=== PATIENT | female | born 1950 | race Two or more races ===

== ENCOUNTER 2016-09-04 15:26 | Emergency (ER) | payer MEDICARE, BC ==
[2016-09-04] MEDS ORDERED: PREDNISONE 10 MG TABLET PO ONE (16:15)
[2016-09-04] MEDS ORDERED: IPRATRPIUM/ALBUTEROL 0.5/2.5MG 3 ML NEBU. NEB ONE (16:15)
--- NOTE | 2016-09-04 16:15 | PHYS DOC ---
Past Medical History Past Medical History: Asthma Past Surgical History: Other Additional Past Surgical Histo: bladder sling Alcohol Use: None Drug Use: None Adult General Chief Complaint Chief Complaint: ASTHMA HPI HPI Patient is a 66 year old female who presents with asthma exacerbation. Patient reports over the course of this week she has become more wheezy, has been breathing heavier, having cough, having chills. She has used albuterol inhaler nebulizer at home with insufficient relief. She denies any chest pain. No other acute complaints. Review of Systems Review of Systems Constitutional: Chills Eyes: Denies change in visual acuity or eye pain HENT: Denies nasal congestion or sore throat Respiratory: Cough, wheezing Cardiovascular: Denies chest pain GI: Denies abdominal pain, nausea, vomiting, bloody stools or diarrhea : Denies dysuria or hematuria Musculoskeletal: Denies back pain or joint pain Integument: Denies rash or skin lesions Neurologic: Denies headache, focal weakness or sensory changes Current Medications Current Medications Current Medications Medications (Trade) Dose Ordered Sig/Tiburcio Start Time Stop Time Status Last Admin Dose Admin Albuterol/ Ipratropium (Duoneb) 6 ml 1X ONCE 09/04/16 16:15 09/04/16 16:17 DC 09/04/16 16:44 6 ML Prednisone (Prednisone) 60 mg 1X ONCE 09/04/16 16:15 09/04/16 16:17 DC 09/04/16 16:25 60 MG Allergies Allergies Allergies Uncoded Allergies Type Severity Reaction Last Updated Verified OTHER Allergy Unknown 10/01/13 Physical Exam Physical Exam Constitutional: Well developed, well nourished, no acute distress, non-toxic appearance HENT: Normocephalic, atraumatic, bilateral external ears normal Eyes: EOMI, conjunctiva normal, no discharge Neck: Normal range of motion, no stridor Cardiovascular: Tachycardic, regular rhythm, no murmur Lungs & Thorax: Diffuse expiratory wheezing Abdomen: Bowel sounds normal, soft, non-distended, no TTP Skin: Warm, dry, no erythema, no rash Extremities: No obvious deformity, no edema Neurologic: Alert and oriented X 3, no gross deficits noted Psychologic: Affect normal, judgement normal, mood normal Current Patient Data Vital Signs Vital Signs Date Time Temp Pulse Resp B/P Pulse Ox O2 Delivery O2 Flow Rate FiO2 09/04/16 17:49 100 20 129/65 94 Room Air 09/04/16 15:30 98.5 98.5 EKG EKG [] Radiology/Procedures Radiology/Procedures CXR (my read): IMPRESSION: No acute cardiopulmonary abnormality is detected. Course & Med Decision Making Course & Med Decision Making Pertinent Labs and Imaging studies reviewed. (See chart for details) Patient is 66-year-old female who presents with asthma exacerbation. Will check chest x-ray to rule out acute process. Breathing treatment, steroids ordered for relief of symptoms. Chest x-ray results as above. Discussed results with patient, who reports her breathing is much improved after the breathing treatment. Repeat exam demonstrates only trace respiratory wheezing. Will discharge with steroid burst, prescription for refill inhaler, instructions for follow-up, return precautions. Dragon Disclaimer Dragon Disclaimer This electronic medical record was generated, in whole or in part, using a voice recognition dictation system. Departure Departure Impression: Primary Impression: Asthma exacerbation Disposition: HOME, SELF-CARE Condition: IMPROVED Referrals: NON,STAFF (PCP) Patient Instructions: Asthma Attacks, Prevention, Asthma, Adult Additional Instructions: Thank you for allowing us to provide care today in the Emergency Department. Take the provided medication as directed. Schedule a follow up appointment with your primary care doctor. Return promptly to the Emergency Department if you develop any new or concerning symptoms. Scripts Albuterol Sulfate (Ventolin Hfa Inhaler)18 Gm Hfa.aer.ad2 Puff INH Q6HRS FOR ASTHMA #1 INHALER Prov:ANGE GARCES MD 09/04/16 Prednisone 50 Mg Tablet1 Tab PO DAILY #4 TAB start taking 09/05/16 Prov:ANGE GARCES MD 09/04/16 ANGE GARCES MD Sep 04, 2016 16:15
--- NOTE | 2016-09-04 16:45 | RAD ---
Chest, 2 views, 09/04/2016: History: Cough, shortness of breath The heart size and pulmonary vascularity are normal. No pulmonary infiltrates are seen. There is no evidence of pleural fluid. The lungs appear to be somewhat hyperexpanded. There is a mild thoracolumbar scoliosis. The bones are demineralized. IMPRESSION: No acute cardiopulmonary abnormality is detected.
[2016-09-04] MEDS ORDERED: VENTOLIN HFA18 GM INH (17:34)
[2016-09-04] MEDS ORDERED: PRED50TA PO (17:34)
[2016-09-04 17:49] VITALS: BP 129/65
== END 2016-09-04 17:49 | disposition home or self-care (01) ==
LOC: ER 15:26
DX: J45.901 Unspecified asthma with (acute) exacerbation (principal)
CPT/HCPCS: 71020; 94250; 94640; 94760; 99285; J7512; J7620

== ENCOUNTER 2017-02-27 10:29 | Emergency (ER) | payer BC, MEDICARE ==
[~2017-02-27 10:29] MED LIST: PRED50TA PO; VENTOLIN HFA18 GM INH
[2017-02-27] MEDS ORDERED: cefTRIAXone IM 250 MG VIAL IM ONE (11:00)
[2017-02-27] MEDS ORDERED: ALBUTEROL SULFATE 2.5 MG/3 ML NEBU. NEB ONE (11:00)
[2017-02-27] MEDS ORDERED: DOXY100C2 PO (12:01)
[2017-02-27 12:11] VITALS: BP 163/77
--- NOTE | 2017-02-27 12:37 | PHYS DOC ---
Past Medical History Past Medical History: No Pertinent History, Asthma Past Surgical History: Other Additional Past Surgical Histo: bladder sling Alcohol Use: None Drug Use: None Adult General Chief Complaint Chief Complaint: ALLERGIC REACTION HPI HPI Patient is a 66 year old female who is here for an infection on her face. She was seen twice by her family practice physician over the past week. The first interaction she was placed on mupirocin cream, but her symptom was worsening so she went in yesterday where she states she received a steroid injection. The area is a triangular shape covering her nose and upper lip with some weeping and crusting. She states that she did not use the mupirocin yesterday or today she felt it was not working. She states this originally started 8 days ago. Review of Systems Review of Systems Constitutional: Denies fever or chills [] Eyes: Denies change in visual acuity, redness, or eye pain [] HENT: Denies nasal congestion or sore throat [] Respiratory: Denies cough or shortness of breath [] Cardiovascular: No additional information not addressed in HPI [] GI: Denies abdominal pain, nausea, vomiting, bloody stools or diarrhea [] : Denies dysuria or hematuria [] Musculoskeletal: Denies back pain or joint pain [] Integument: See history of present illness Neurologic: Denies headache, focal weakness or sensory changes [] Endocrine: Denies polyuria or polydipsia [] Current Medications Current Medications Current Medications Medications (Trade) Dose Ordered Sig/Tiburcio Start Time Stop Time Status Last Admin Dose Admin Albuterol Sulfate (Ventolin Neb Soln) 2.5 mg 1X ONCE 02/27/17 11:00 02/27/17 11:01 DC 02/27/17 11:06 2.5 MG Ceftriaxone Sodium (Rocephin Im) 250 mg 1X ONCE 02/27/17 11:00 02/27/17 11:01 DC 02/27/17 11:09 250 MG Allergies Allergies Allergies Uncoded Allergies Type Severity Reaction Last Updated Verified OTHER Allergy Unknown 10/01/13 Physical Exam Physical Exam Constitutional: Well developed, well nourished, no acute distress, non-toxic appearance. [] HENT: Normocephalic, bilateral external ears normal, oropharynx moist, no oral exudates] Eyes: PERRLA, EOMI, conjunctiva normal, no discharge. [] Neck: Normal range of motion, no tenderness, supple, no stridor. [] Cardiovascular:Heart rate regular rhythm, no murmur [] Lungs & Thorax: Patient has bilateral inspiratory wheezing Abdomen: Bowel sounds normal, soft, no tenderness, no masses, no pulsatile masses. [] Skin: Patient has a scalded appearance to her nose and upper lip with some crusting and weeping, no pustules noted Back: No tenderness, no CVA tenderness. [] Extremities: No tenderness, no cyanosis, no clubbing, ROM intact, no edema. [] Neurologic: Alert and oriented X 3, normal motor function, normal sensory function, no focal deficits noted. [] Psychologic: Affect normal, judgement normal, mood normal. [] Current Patient Data Vital Signs Vital Signs Date Time Temp Pulse Resp B/P (MAP) Pulse Ox O2 Delivery O2 Flow Rate FiO2 02/27/17 12:11 80 20 163/77 (105) 93 Room Air 02/27/17 10:30 98.7 98.7 EKG EKG [] Radiology/Procedures Radiology/Procedures [] Impressions: Following a breathing treatment in the emergency department the patient's lung sounds are clear to auscultation bilaterally. She states that she feels like she is breathing much better as well. She was encouraged to continue using her albuterol inhaler at home. Course & Med Decision Making Course & Med Decision Making Pertinent Labs and Imaging studies reviewed. (See chart for details) [] 1. Facial infection 2. Asthma exacerbation A culture was obtained from the facial lesion and has been sent to lab for culture and sensitivity. We will call with culture results. The patient was given a shot of Rocephin in the emergency department and is being sent home on doxycycline. She is to follow-up with her primary care in 1 week for recheck or return to the ED if worsening. Dragon Disclaimer Dragon Disclaimer This electronic medical record was generated, in whole or in part, using a voice recognition dictation system. Departure Departure Impression: Primary Impression: Asthma attack Additional Impression: Facial infection Disposition: 01 HOME, SELF-CARE Condition: STABLE Patient Instructions: Skin Infections, Asthma, Adult, [id number] Scripts Doxycycline Hyclate (DOXYCYCLINE HYCLATE) 100 Mg Capsule 1 CAP PO BID, #14 CAP Prov: NIXON JEROME APRN 02/27/17 Problem Qualifiers NIXON JEROME APRN Feb 27, 2017 12:37
== END 2017-02-27 12:12 | disposition home or self-care (01) ==
LOC: ER 10:29
DX: L08.89 Other specified local infections of the skin and subcutaneous tissue (principal); J45.909 Unspecified asthma, uncomplicated; Z91.09 Other allergy status, other than to drugs and biological substances
CPT/HCPCS: 87071; 87075; 87205; 94250; 94640; 96372; 99284; J0696; J7613

== ENCOUNTER 2017-07-14 13:47 | Emergency (ER) | payer BC, MEDICARE ==
[2017-07-14 14:20] LABS: ADD MAN DIFF? NO
[2017-07-14 14:30] LABS: BASO % 1 % (0-3); EOS # 0.4 x10^3/uL (0.0-0.7); EOS % 6 % (0-3); HEMATOCRIT 39.7 % (36.0-47.0); HEMOGLOBIN 12.8 g/dL (12.0-15.5); LYMPH # 1.8 x10^3/uL (1.0-4.8); LYMPH % 24 % (24-48); MEAN CORPUSCULAR HEMOGLOBIN 29 pg (25-35); MEAN CORPUSCULAR HGB CONC 32 g/dL (31-37); MEAN CORPUSCULAR VOLUME 89 fL (79-100); MONO # 0.7 x10^3/uL (0.0-1.1); MONO % 9 % (0-9); NEUT # 4.5 x10^3uL (1.8-7.7); NEUT % 60 % (31-73); PLATELET COUNT 213 x10^3/uL (140-400); RED BLOOD COUNT 4.48 x10^6/uL (3.50-5.40); RED CELL DISTRIBUTION WIDTH 14.2 % (11.5-14.5); WHITE BLOOD COUNT 7.4 x10^3/uL (4.0-11.0)
[2017-07-14 14:48] LABS: ANION GAP 12 (6-14); BLOOD UREA NITROGEN 11 mg/dL (7-20); BUN/CREATININE RATIO 22 (6-20); CALCIUM 8.5 mg/dL (8.5-10.1); CARBON DIOXIDE 27 mmol/L (21-32); CHLORIDE 104 mmol/L (98-107); CREATININE 0.5 mg/dL (0.6-1.0); GFR 122.3; GLUCOSE 91 mg/dL (70-99); SODIUM 143 mmol/L (136-145)
[2017-07-14 14:53] LABS: ALBUMIN 3.7 g/dL (3.4-5.0); ALBUMIN/GLOBULIN RATIO 0.9 (1.0-1.7); ALK PHOS 98 U/L (46-116); ALT (SGPT) 16 U/L (14-59); AST (SGOT) 19 U/L (15-37); C-REACTIVE PROTEIN 2.4 mg/L (0-3.3); TOTAL BILIRUBIN 0.2 mg/dL (0.2-1.0); TOTAL PROTEIN 7.8 g/dL (6.4-8.2)
[2017-07-14 15:37] LABS: SEDIMENTATION RATE 10 (0-25)
[2017-07-14] MEDS: CLINDAMYCIN 600MG PREMIX 50 ML IV (16:06)
== END 2017-07-14 17:05 | disposition home or self-care (01) ==
LOC: ER 13:47
DX: L03.116 Cellulitis of left lower limb (principal); R21 Rash and other nonspecific skin eruption; J45.909 Unspecified asthma, uncomplicated; Z96.0 Presence of urogenital implants; Z88.5 Allergy status to narcotic agent; Z88.8 Allergy status to other drugs, medicaments and biological substances
CPT/HCPCS: 36415; 80053; 85025; 85651; 86140; 87040; 93971; 96365; 99285-25; J3490

== ENCOUNTER 2017-10-03 05:14 | Emergency (ER) | payer BC, MEDICARE ==
[2017-10-03] MEDS: IPRATRPIUM/ALBUTEROL 0.5/2.5MG 3 ML NEBU. NEB (05:37)
[2017-10-03] MEDS: predniSONE 20 MG TABLET PO (05:46)
== END 2017-10-03 05:50 | disposition home or self-care (01) ==
LOC: ER 05:14
DX: J45.31 Mild persistent asthma with (acute) exacerbation (principal); Z88.5 Allergy status to narcotic agent; Z96.0 Presence of urogenital implants
CPT/HCPCS: 94640; 99283-25; J7512; J7620

== ENCOUNTER → 2017-11-17 | Outpatient (CLI) | payer BC, MEDICARE ==
[2017-11-17] MEDS: REGADENOSON 0.4 MG/5 ML DISP.SYRIN. IV (09:00)
== END | disposition home or self-care (01) ==
LOC: ECHO 07:35
DX: I08.1 Rheumatic disorders of both mitral and tricuspid valves (principal)
CPT/HCPCS: 78452; 93017; 93306; 96374; 96375; 96376; A9500; J2785

== ENCOUNTER 2019-08-27 11:59 | Inpatient (IN) | payer BC, MEDICARE ==
[~2019-08-27] VITALS: Ht 147.3 cm; Wt 55.6 kg
[~2019-08-27 11:59] MED LIST changes: +AZIT250T PO; +CLIN300C8 PO; +DOXY100C2 PO; +IPRA3AMP29 NEB; +PRED-220 PO
[2019-08-27] MEDS ORDERED: ACETAMINOPHEN 500 MG TABLET PO ONE (12:45)
[2019-08-27] MEDS ORDERED: cefTRIAXone IV Push 1 GM VIAL. IVP ONE (12:45)
[2019-08-27] MEDS ORDERED: IV NORMAL SALINE 500ML BAG 500 ML IV ONE ×2 (12:45→13:30)
[2019-08-27] MEDS ORDERED: IV NORMAL SALINE 1000ML BAG 1,000 ML IV ONE (12:45)
[2019-08-27 12:52] LABS: BASO % 0 % (0-3); EOS % 0 % (0-3); HEMATOCRIT 38.9 % (36.0-47.0); LYMPH # 0.6 x10^3/uL (1.0-4.8); LYMPH % 3 % (24-48); MEAN CORPUSCULAR HEMOGLOBIN 29 pg (25-35); MEAN CORPUSCULAR HGB CONC 33 g/dL (31-37); MEAN CORPUSCULAR VOLUME 86 fL (79-100); MONO # 1.1 x10^3/uL (0.0-1.1); MONO % 5 % (0-9); NEUT # 19.5 x10^3/uL (1.8-7.7); NEUT % 92 % (31-73); PLATELET COUNT 269 x10^3/uL (140-400); RED BLOOD COUNT 4.54 x10^6/uL (3.50-5.40); RED CELL DISTRIBUTION WIDTH 14.2 % (11.5-14.5); WHITE BLOOD COUNT 21.3 x10^3/uL (4.0-11.0)
[2019-08-27 12:53] LABS: BILIRUBIN,URINE MODERATE (NEG); CLARITY,URINE CLEAR; COLOR,URINE AMBER; NITRITE,URINE NEGATIVE (NEG); PROTEIN,URINE 30 mg/dL (NEG-TRACE)
[2019-08-27 13:04] LABS: CALCIUM 8.9 mg/dL (8.5-10.1); CREATININE 0.7 mg/dL (0.6-1.0); GFR 82.5; POTASSIUM 3.9 mmol/L (3.5-5.1)
[2019-08-27 13:12] LABS: BACTERIA,URINE FEW /HPF (0-FEW); RBC,URINE RARE /HPF (0-2); SQUAMOUS EPITHELIAL CELL,UR FEW /LPF; WBC,URINE OCC /HPF (0-4)
[2019-08-27 13:15] LABS: ALBUMIN 3.6 g/dL (3.4-5.0); ALBUMIN/GLOBULIN RATIO 0.9 (1.0-1.7); TOTAL BILIRUBIN 0.7 mg/dL (0.2-1.0); TOTAL PROTEIN 7.7 g/dL (6.4-8.2)
--- NOTE | 2019-08-27 13:25 | RAD ---
EXAM: Chest, single view. HISTORY: Fever. COMPARISON: 09/04/2016 FINDINGS: A frontal view of the chest is obtained. There is no infiltrate, pleural effusion or pneumothorax. The heart is normal in size. IMPRESSION: No acute pulmonary finding. Electronically signed by: aNdya Dang MD (08/27/2019 1:23 PM) [id number]
[2019-08-27 13:29] LABS: INFLUENZA A PATIENT NEGATIVE (NEGATIVE); INFLUENZA B PATIENT NEGATIVE (NEGATIVE)
[2019-08-27 13:59] LABS: % BANDS 7 % (0-9); % LYMPHS 6 % (24-48); % MONOS 2 % (0-10); % SEGS 85 % (35-66)
[2019-08-27 14:01] LABS: PLT ESTIMATE ADEQUATE (ADEQUATE)
[2019-08-27 14:02] LABS: TOXIC GRANULATION SLIGHT
--- NOTE | 2019-08-27 15:13 | PDOC1 ---
History and Physical Date of Admission Date of Admission DATE: 08/27/19 TIME: 15:08 Identification/Chief Complaint Chief Complaint Fever Source Source: Patient History of Present Illness History of Present Illness Ms Massey is a 69yo F w/ PMHx asthma who presents from home with chills, fever, cough and myalgias for the past 48 hours. Notably with Fever 102.6F, tachycardic into the 130s, hypoxic to 86% on room air. No diarrhea, does have nausea and vomiting. CXR was relatively clear. Given rocephin x1 in ED. WBC 21K, otherwise labs WNL. EKG shows sinus tach rate 121, may be some subtle rate related changes laterally particularly in V6. Past Medical History Pulmonary: Asthma Past Surgical History Past Surgical History: Other (Bladder sling) Family History Family History reviewed Family History: Family History Unknown Social History Smoke: No ALCOHOL: none Drugs: None Current Medications Current Medications Current Medications Acetaminophen (Tylenol) 1,000 mg 1X ONCE PO Last administered on 08/27/19at 12:48; Start 08/27/19 at 12:45; Stop 08/27/19 at 12:46; Status DC Sodium Chloride 1,000 ml @ 1,000 mls/hr 1X ONCE IV Last administered on 08/27/19at 12:43; Start 08/27/19 at 12:45; Stop 08/27/19 at 13:44; Status DC Sodium Chloride 500 ml @ 500 mls/hr 1X ONCE IV Last administered on 08/27/19at 12:48; Start 08/27/19 at 12:45; Stop 08/27/19 at 13:44; Status DC Ceftriaxone Sodium (Rocephin) 1 gm 1X ONCE IVP Last administered on 08/27/19at 12:48; Start 08/27/19 at 12:45; Stop 08/27/19 at 12:46; Status DC Sodium Chloride 500 ml @ 500 mls/hr 1X ONCE IV Last administered on 08/27/19at 13:30; Start 08/27/19 at 13:30; Stop 08/27/19 at 14:29; Status DC Active Scripts Active Duoneb 0.5-3(2.5) Mg/3 Ml (Albuterol/Ipratropium) 3 Ml Ampul.neb 3 Ml NEB QID Prednisone 10 Mg Tablet 10 Mg PO UD Take 3 tablets by mouth twice a day for 3 days, then take 2 tablets by mouth twice a day for 3 days, then take 1 tablet by mouth twice a day for 3 days, then take 1 tablet by mouth daily x 3 days, then stop. Zithromax (Azithromycin) 250 Mg Tablet 1 Pkg PO UD Take (2) tablets today and then (1) a day until gone Clindamycin Hcl 300 Mg Capsule 1 Cap PO TID Doxycycline Hyclate 100 Mg Capsule 1 Cap PO BID Prednisone 50 Mg Tablet 1 Tab PO DAILY start taking 09/05/16 Allergies Allergies: Coded Allergies: codeine (Verified Adverse Reaction, Intermediate, dizzy, 07/14/17) Uncoded Allergies: OTHER (Allergy, Unknown, 10/01/13) Pt. unable to recall name of allergy ROS General: YES: Chills, Fatigue, Malaise; No: Night Sweats, Appetite, Other PSYCHOLOGICAL ROS: No: Anxiety, Behavioral Disorder, Concentration difficultie, Decreased libido, Depression, Disorientation, Hallucinations, Hostility, Irritablity, Memory difficulties, Mood Swings, Obsessive thoughts, Physical abuse, Sexual abuse, Sleep disturbances, Suicidal ideation, Other Eyes: No Blurry vision, No Decreased vision, No Double vision, No Dry eyes, No Excessive tearing, No Eye Pain, No Itchy Eyes, No Loss of vision, No Photophobia, No Scotomata, No Uses contacts, No Uses glasses, No Other HEENT: No: Heacaches, Visual Changes, Hearing change, Nasal congestion, Nasal discharge, Oral lesions, Sinus pain, Sore Throat, Epistaxis, Sneezing, Snoring, Tinnitus, Vertigo, Vocal changes, Other ALLERGY AND IMMUNOLOGY: No: Hives, Insect Bite Sensitivity, Itchy/Watery Eyes, Nasal Congestion, Post Nasal Drip, Seasonal Allergies, Other Hematological and Lymphatic: No: Bleeding Problems, Blood Clots, Blood Transfusions, Brusing, Night Sweats, Pallor, Swollen Lymph Nodes, Other ENDOCRINE: No: Breast Changes, Galactorrhea, Hair Pattern Changes, Hot Flashes, Malaise/lethargy, Mood Swings, Palpitations, Polydipsia/polyuria, Skin Changes, Temperature Intolerance, Unexpected Weight Changes, Other Breast: No New/Changing Breast Lumps, No Nipple changes, No Nipple discharge, No Other Respiratory: YES: Cough, Shortness of breath, Tachypnea, Wheezing; No: Hemoptysis, Orthopnea, Pleuritic Pain, SOB with excertion, Sputum Changes, Stridor, Other Cardiovascular: No Chest Pain, No Palpitations, No Orthopnea, No Paroxysmal Noc. Dyspnea, No Edema, No Lt Headedness, No Other Gastrointestinal: No Nausea, No Vomiting, No Abdominal Pain, No Diarrhea, No Constipation, No Melena, No Hematochezia, No Other Genitourinary: No Dysuria, No Frequency, No Incontinence, No Hematuria, No Retention, No Discharge, No Urgency, No Pain, No Flank Pain, No Other, No , No , No , No , No , No , No Musculoskeletal: No Gait Disturbance, No Joint Pain, No Joint Stiffness, No Joint Swelling, No Muscle Pain, No Muscular Weakness, No Pain In:, No Swelling In:, No Other Neurological: No Behavorial Changes, No Bowel/Bladder ControlChng, No Confusion, No Dizziness, No Gait Disturbance, No Headaches, No Impaired Coord/balance, No Memory Loss, No Numbness/Tingling, No Seizures, No Speech Problems, No Tremors, No Visual Changes, No Weakness, No Other Skin: No Dry Skin, No Eczema, No Hair Changes, No Lumps, No Mole Changes, No Mottling, No Nail Changes, No Pruritus, No Rash, No Skin Lesion Changes, No Other, No Acne Physical Exam General: Alert, Oriented X3, Cooperative, moderate distress HEENT: Atraumatic, PERRLA, EOMI, Mucous membr. moist/pink Lungs: Other (Diffuse wheezing, crakles in right upper lobe and left lower lobe) Heart: S1S2, RRR, no thrills, no rubs, no gallops, no murmurs Abdomen: Normal bowel sounds, Soft, No tenderness, No hepatosplenomegaly, No masses Rectal Exam: not examined Extremities: No clubbing, No cyanosis, No edema, Normal pulses, No tenderness/swelling Skin: No rashes, No breakdown, No significant lesion Neuro: Normal gait, Normal speech, Strength at 5/5 X4 ext, Normal tone, Sensat ion intact, Cranial nerves 3-12 NL, Reflexes 2+ Psych/Mental Status: Mental status NL, Mood NL Vitals Vitals Vital Signs Date Time Temp Pulse Resp B/P (MAP) Pulse Ox O2 Delivery O2 Flow Rate FiO2 2/23/20 14:25 106 20 131/77 (95) 97 NonRebreather Mask 08/27/19 13:30 5.0 08/27/19 12:25 102.6 102.6 Labs Labs Laboratory Tests Test 08/27/19 12:18 White Blood Count 21.3 x10^3/uL (4.0-11.0) Red Blood Count 4.54 x10^6/uL (3.50-5.40) Hemoglobin 13.0 g/dL (12.0-15.5) Hematocrit 38.9 % (36.0-47.0) Mean Corpuscular Volume 86 fL (79-100) Mean Corpuscular Hemoglobin 29 pg (25-35) Mean Corpuscular Hemoglobin Concent 33 g/dL (31-37) Red Cell Distribution Width 14.2 % (11.5-14.5) Platelet Count 269 x10^3/uL (140-400) Neutrophils (%) (Auto) 92 % (31-73) Lymphocytes (%) (Auto) 3 % (24-48) Monocytes (%) (Auto) 5 % (0-9) Eosinophils (%) (Auto) 0 % (0-3) Basophils (%) (Auto) 0 % (0-3) Neutrophils # (Auto) 19.5 x10^3/uL (1.8-7.7) Lymphocytes # (Auto) 0.6 x10^3/uL (1.0-4.8) Monocytes # (Auto) 1.1 x10^3/uL (0.0-1.1) Eosinophils # (Auto) 0.0 x10^3/uL (0.0-0.7) Basophils # (Auto) 0.0 x10^3/uL (0.0-0.2) Segmented Neutrophils % 85 % (35-66) Band Neutrophils % 7 % (0-9) Lymphocytes % 6 % (24-48) Monocytes % 2 % (0-10) Toxic Granulation Slight Platelet Estimate Adequate (ADEQUATE) Urine Collection Type Unknown Urine Color Kelsey Urine Clarity Clear Urine pH 6.0 Urine Specific [place] 1.025 Urine Protein 30 mg/dL (NEG-TRACE) Urine Glucose (UA) Negative mg/dL (NEG) Urine Ketones (Stick) >=80 mg/dL (NEG) Urine Blood Negative (NEG) Urine Nitrite Negative (NEG) Urine Bilirubin Moderate (NEG) Urine Urobilinogen Dipstick 1.0 mg/dL (0.2 mg/dL) Urine Leukocyte Esterase Small (NEG) Urine RBC Rare /HPF (0-2) Urine WBC Occ /HPF (0-4) Urine Squamous Epithelial Cells Few /LPF Urine Bacteria Few /HPF (0-FEW) Urine Mucus Slight /LPF Sodium Level 136 mmol/L (136-145) Potassium Level 3.9 mmol/L (3.5-5.1) Chloride Level 98 mmol/L (98-107) Carbon Dioxide Level 26 mmol/L (21-32) Anion Gap 12 (6-14) Blood Urea Nitrogen 15 mg/dL (7-20) Creatinine 0.7 mg/dL (0.6-1.0) Estimated GFR (Cockcroft-Gault) 82.5 BUN/Creatinine Ratio 21 (6-20) Glucose Level 105 mg/dL (70-99) Lactic Acid Level 0.9 mmol/L (0.4-2.0) Calcium Level 8.9 mg/dL (8.5-10.1) Total Bilirubin 0.7 mg/dL (0.2-1.0) Aspartate Amino Transf (AST/SGOT) 16 U/L (15-37) Alanine Aminotransferase (ALT/SGPT) 18 U/L (14-59) Alkaline Phosphatase 115 U/L (46-116) Troponin I Quantitative < 0.017 ng/mL (0.000-0.055) Total Protein 7.7 g/dL (6.4-8.2) Albumin 3.6 g/dL (3.4-5.0) Albumin/Globulin Ratio 0.9 (1.0-1.7) Influenza Type A Antigen Negative (NEGATIVE) Influenza Type B Antigen Negative (NEGATIVE) Laboratory Tests Test 08/27/19 12:18 White Blood Count 21.3 x10^3/uL (4.0-11.0) Red Blood Count 4.54 x10^6/uL (3.50-5.40) Hemoglobin 13.0 g/dL (12.0-15.5) Hematocrit 38.9 % (36.0-47.0) Mean Corpuscular Volume 86 fL (79-100) Mean Corpuscular Hemoglobin 29 pg (25-35) Mean Corpuscular Hemoglobin Concent 33 g/dL (31-37) Red Cell Distribution Width 14.2 % (11.5-14.5) Platelet Count 269 x10^3/uL (140-400) Neutrophils (%) (Auto) 92 % (31-73) Lymphocytes (%) (Auto) 3 % (24-48) Monocytes (%) (Auto) 5 % (0-9) Eosinophils (%) (Auto) 0 % (0-3) Basophils (%) (Auto) 0 % (0-3) Neutrophils # (Auto) 19.5 x10^3/uL (1.8-7.7) Lymphocytes # (Auto) 0.6 x10^3/uL (1.0-4.8) Monocytes # (Auto) 1.1 x10^3/uL (0.0-1.1) Eosinophils # (Auto) 0.0 x10^3/uL (0.0-0.7) Basophils # (Auto) 0.0 x10^3/uL (0.0-0.2) Segmented Neutrophils % 85 % (35-66) Band Neutrophils % 7 % (0-9) Lymphocytes % 6 % (24-48) Monocytes % 2 % (0-10) Toxic Granulation Slight Platelet Estimate Adequate (ADEQUATE) Urine Collection Type Unknown Urine Color Kelsey Urine Clarity Clear Urine pH 6.0 Urine Specific [place] 1.025 Urine Protein 30 mg/dL (NEG-TRACE) Urine Glucose (UA) Negative mg/dL (NEG) Urine Ketones (Stick) >=80 mg/dL (NEG) Urine Blood Negative (NEG) Urine Nitrite Negative (NEG) Urine Bilirubin Moderate (NEG) Urine Urobilinogen Dipstick 1.0 mg/dL (0.2 mg/dL) Urine Leukocyte Esterase Small (NEG) Urine RBC Rare /HPF (0-2) Urine WBC Occ /HPF (0-4) Urine Squamous Epithelial Cells Few /LPF Urine Bacteria Few /HPF (0-FEW) Urine Mucus Slight /LPF Sodium Level 136 mmol/L (136-145) Potassium Level 3.9 mmol/L (3.5-5.1) Chloride Level 98 mmol/L (98-107) Carbon Dioxide Level 26 mmol/L (21-32) Anion Gap 12 (6-14) Blood Urea Nitrogen 15 mg/dL (7-20) Creatinine 0.7 mg/dL (0.6-1.0) Estimated GFR (Cockcroft-Gault) 82.5 BUN/Creatinine Ratio 21 (6-20) Glucose Level 105 mg/dL (70-99) Lactic Acid Level 0.9 mmol/L (0.4-2.0) Calcium Level 8.9 mg/dL (8.5-10.1) Total Bilirubin 0.7 mg/dL (0.2-1.0) Aspartate Amino Transf (AST/SGOT) 16 U/L (15-37) Alanine Aminotransferase (ALT/SGPT) 18 U/L (14-59) Alkaline Phosphatase 115 U/L (46-116) Troponin I Quantitative < 0.017 ng/mL (0.000-0.055) Total Protein 7.7 g/dL (6.4-8.2) Albumin 3.6 g/dL (3.4-5.0) Albumin/Globulin Ratio 0.9 (1.0-1.7) Influenza Type A Antigen Negative (NEGATIVE) Influenza Type B Antigen Negative (NEGATIVE) Images Images CXR - A frontal view of the chest is obtained. There is no infiltrate, pleural effusion or pneumothorax. The heart is normal in size. IMPRESSION: No acute pulmonary finding. VTE Prophylaxis Ordered VTE Prophylaxis Devices: Yes VTE Pharmacological Prophylaxi: Yes Assessment/Plan Assessment/Plan A/P: Acute hypoxic respiratory failure - no history of O2 requirements. CXR read as relatively normal. Will wean O2 as tolerated, nebulizers. Consult pulm Sepsis - likely 2/2 influenza and concomitant bacterial pneumonia, will treat both Asthma exacerbation - will give nebulizers FEN - General diet PPX - lovenox FULL CODE Dispo - inpatient likely 2 midnights JAEL MONZON MD Aug 27, 2019 15:13
[2019-08-27] MEDS ORDERED: IPRATRPIUM/ALBUTEROL 0.5/2.5MG 3 ML NEBU. NEB ONE (16:00)
[2019-08-27] MEDS ORDERED: DOXYCYCLINE HYCLATE 100 MG in IV DEXTROSE 5% 100ML 100 ML IV ONE (16:00)
[2019-08-27] MEDS ORDERED: KETOROLAC 30 MG/ML VIAL. IVP PRN (16:30)
--- NOTE | 2019-08-27 16:42 | PHYS DOC ---
Past Medical History Past Medical History: Asthma Past Surgical History: Other Additional Past Surgical Histo: bladder or uterus sling Smoking Status: Never Smoker Alcohol Use: None Drug Use: None Adult General Chief Complaint Chief Complaint: FLU SYMPTOM HPI HPI Patient is a 69 year old female history of asthma presenting with shortness of breath fever and cough onset yesterday. Very warm to touch breathing fast short of breath with coughing especially. Has some chest pain with coughing as well Review of Systems Review of Systems Constitutional: GI: Denies abdominal pain, nausea, vomiting, bloody stools or diarrhea [] : Denies dysuria or hematuria [] Musculoskeletal: Denies back pain or joint pain [] Integument: Denies rash or skin lesions [] Neurologic: Denies headache, focal weakness or sensory changes [] Endocrine: Denies polyuria or polydipsia [] All other systems were reviewed and found to be within normal limits, except as documented in this note. Current Medications Current Medications Current Medications Medications (Trade) Dose Ordered Sig/Tiburcio Start Time Stop Time Status Last Admin Dose Admin Acetaminophen (Tylenol) 1,000 mg 1X ONCE 08/27/19 12:45 08/27/19 12:46 DC 08/27/19 12:48 1,000 MG Ceftriaxone Sodium (Rocephin) 1 gm 1X ONCE 08/27/19 12:45 08/27/19 12:46 DC 08/27/19 12:48 1 GM Sodium Chloride 500 ml @ 500 mls/hr 1X ONCE 08/27/19 13:30 08/27/19 14:29 DC 08/27/19 13:30 500 MLS/HR Allergies Allergies Allergies Coded Allergies Type Severity Reaction Last Updated Verified codeine Adverse Reaction Intermediate dizzy 07/14/17 Yes Uncoded Allergies Type Severity Reaction Last Updated Verified OTHER Allergy Unknown 10/01/13 Physical Exam Physical Exam Constitutional: Well developed, mildly ill-appearing HENT: Normocephalic, atraumatic, bilateral external ears normal, oropharynx moist, no oral exudates, nose normal. [] Eyes: PERRLA, EOMI, conjunctiva normal, no discharge. [] Neck: Normal range of motion, no tenderness, supple, no stridor. [] Cardiovascular: Tachycardic Lungs & Thorax: Mild tachypnea with faint wheezing noted Abdomen: Bowel sounds normal, soft, no tenderness, no masses, no pulsatile mass es. [] Skin: Warm, dry, no erythema, no rash. [] Back: No tenderness, no CVA tenderness. [] Extremities: No tenderness, no cyanosis, no clubbing, ROM intact, no edema. [] Neurologic: Alert and oriented X 3, normal motor function, normal sensory function, no focal deficits noted. [] Psychologic: Affect normal, judgement normal, mood normal. [] Current Patient Data Vital Signs Vital Signs Date Time Temp Pulse Resp B/P (MAP) Pulse Ox O2 Delivery O2 Flow Rate FiO2 08/27/19 13:30 108 20 124/61 (82) 99 Nasal Cannula 5.0 08/27/19 12:25 102.6 102.6 Lab Values Laboratory Tests Test 08/27/19 12:18 White Blood Count 21.3 x10^3/uL (4.0-11.0) H Red Blood Count 4.54 x10^6/uL (3.50-5.40) Hemoglobin 13.0 g/dL (12.0-15.5) Hematocrit 38.9 % (36.0-47.0) Mean Corpuscular Volume 86 fL (79-100) Mean Corpuscular Hemoglobin 29 pg (25-35) Mean Corpuscular Hemoglobin Concent 33 g/dL (31-37) Red Cell Distribution Width 14.2 % (11.5-14.5) Platelet Count 269 x10^3/uL (140-400) Neutrophils (%) (Auto) 92 % (31-73) H Lymphocytes (%) (Auto) 3 % (24-48) L Monocytes (%) (Auto) 5 % (0-9) Eosinophils (%) (Auto) 0 % (0-3) Basophils (%) (Auto) 0 % (0-3) Neutrophils # (Auto) 19.5 x10^3/uL (1.8-7.7) H Lymphocytes # (Auto) 0.6 x10^3/uL (1.0-4.8) L Monocytes # (Auto) 1.1 x10^3/uL (0.0-1.1) Eosinophils # (Auto) 0.0 x10^3/uL (0.0-0.7) Basophils # (Auto) 0.0 x10^3/uL (0.0-0.2) Segmented Neutrophils % 85 % (35-66) H Band Neutrophils % 7 % (0-9) Lymphocytes % 6 % (24-48) L Monocytes % 2 % (0-10) Toxic Granulation Slight Platelet Estimate Adequate (ADEQUATE) Urine Collection Type Unknown Urine Color Kelsey Urine Clarity Clear Urine pH 6.0 Urine Specific [place] 1.025 Urine Protein 30 mg/dL (NEG-TRACE) Urine Glucose (UA) Negative mg/dL (NEG) Urine Ketones (Stick) >=80 mg/dL (NEG) Urine Blood Negative (NEG) Urine Nitrite Negative (NEG) Urine Bilirubin Moderate (NEG) Urine Urobilinogen Dipstick 1.0 mg/dL (0.2 mg/dL) Urine Leukocyte Esterase Small (NEG) Urine RBC Rare /HPF (0-2) Urine WBC Occ /HPF (0-4) Urine Squamous Epithelial Cells Few /LPF Urine Bacteria Few /HPF (0-FEW) Urine Mucus Slight /LPF Sodium Level 136 mmol/L (136-145) Potassium Level 3.9 mmol/L (3.5-5.1) Chloride Level 98 mmol/L (98-107) Carbon Dioxide Level 26 mmol/L (21-32) Anion Gap 12 (6-14) Blood Urea Nitrogen 15 mg/dL (7-20) Creatinine 0.7 mg/dL (0.6-1.0) Estimated GFR (Cockcroft-Gault) 82.5 BUN/Creatinine Ratio 21 (6-20) H Glucose Level 105 mg/dL (70-99) H Lactic Acid Level 0.9 mmol/L (0.4-2.0) Calcium Level 8.9 mg/dL (8.5-10.1) Total Bilirubin 0.7 mg/dL (0.2-1.0) Aspartate Amino Transferase (AST) 16 U/L (15-37) Alanine Aminotransferase (ALT) 18 U/L (14-59) Alkaline Phosphatase 115 U/L (46-116) Troponin I Quantitative < 0.017 ng/mL (0.000-0.055) Total Protein 7.7 g/dL (6.4-8.2) Albumin 3.6 g/dL (3.4-5.0) Albumin/Globulin Ratio 0.9 (1.0-1.7) L Influenza Type A Antigen Negative (NEGATIVE) Influenza Type B Antigen Negative (NEGATIVE) Laboratory Tests 08/27/19 12:18 Laboratory Tests 08/27/19 12:18 EKG EKG []EKG shows sinus tach rate 121 ischemic changes noted interpreted by me time of encounter. There may be some subtle rate related changes laterally particularly in V6. Radiology/Procedures Radiology/Procedures [] FINDINGS: A frontal view of the chest is obtained. There is no infiltrate, pleural effusion or pneumothorax. The heart is normal in size. IMPRESSION: No acute pulmonary finding. Electronically signed by: Nadya Rock MD (08/27/2019 1:23 PM) [id number] DICTATED and SIGNED BY: NADYA ROCK MD DATE: 08/27/19 1323 Course & Med Decision Making Course & Med Decision Making Pertinent Labs and Imaging studies reviewed. (See chart for details) 69-year-old female with known asthma presenting with flulike symptoms however influenza swab negative. []Leukocytosis noted with normal lactic acid. There is a left shift. Influenza swabs negative chest x-ray was read as negative but clinically the patient therefore has pneumonia by my clinical examination labwork and history as well as leukocytosis. I gave antibiotics and I consulted with Dr. kathleen for admit was in the patient in the emergency room as of 4:20 PM Chiki Disclaimer Chiki Disclaimer This electronic medical record was generated, in whole or in part, using a voice recognition dictation system. Departure Departure Impression: Primary Impression: Fever Disposition: ADMITTED INPATIENT Admitting Physician: CARLOS Condition: STABLE Referrals: KATHARINA FERNÁNDEZ APRN (PCP) ULYSSES KHOURY MD Aug 27, 2019 16:42
[2019-08-27 16:45] VITALS: BP 105/69
[2019-08-27] MEDS: ENOXAPARIN 40 MG/0.4 ML SYRINGE. SQ SCH (17:45)
[2019-08-27 19:20] VITALS: BP 109/61
[2019-08-27] MEDS: IPRATRPIUM/ALBUTEROL 0.5/2.5MG 3 ML NEBU. NEB SCH (20:15)
[2019-08-27] MEDS: BUDESONIDE 0.5 MG/2 ML NEBU. NEB SCH (20:15)
--- NOTE | 2019-08-27 20:37 | EKG ---
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
[2019-08-27] MEDS ORDERED: ACETAMINOPHEN 325 MG TABLET. PO PRN (22:00)
[2019-08-27] MEDS ORDERED: ONDANSETRON PF 4 MG/2 ML VIAL. IVP PRN (22:00)
[2019-08-27] MEDS: MONTELUKAST SODIUM 10 MG TABLET. PO SCH (22:10)
[2019-08-27] MEDS: OSELTAMIVIR 30 MG CAPSULE PO SCH (22:10)
[2019-08-27 23:51] VITALS: BP 110/62
--- NOTE | 2019-08-28 01:40 | NUR ---
RN had to clear some 1700 charting not done during day.
[2019-08-28 03:20] VITALS: BP 118/64
[2019-08-28 07:22] VITALS: BP 123/63
[2019-08-28] MEDS: IPRATRPIUM/ALBUTEROL 0.5/2.5MG 3 ML NEBU. NEB SCH ×4 (07:55→20:42)
[2019-08-28] MEDS: BUDESONIDE 0.5 MG/2 ML NEBU. NEB SCH ×2 (07:55→20:42)
[2019-08-28] MEDS: OSELTAMIVIR 30 MG CAPSULE PO SCH ×2 (08:55→21:45)
[2019-08-28] MEDS: DOXYCYCLINE HYCLATE 100 MG TABLET PO SCH ×2 (08:55→21:46)
[2019-08-28] MEDS: cefTRIAXone IV Push 1 GM VIAL. IVP SCH (09:02)
--- NOTE | 2019-08-28 09:30 | CONS ---
DATE OF CONSULTATION: 08/28/2019 PULMONARY CONSULTATION ATTENDING PHYSICIAN: Dr. Servin. REASON FOR CONSULTATION: Fever and asthma. HISTORY OF PRESENT ILLNESS: The patient is a 69-year-old female who has history of asthma. She presented to the hospital with complaint of fever and chills and a cough, which has been nonproductive. She has myalgias for the last 48 hours. She had a T-max of 102.6 on admission and was tachycardic and was also hypoxic with saturation of 86% on room air. Currently, she is on oxygen, which corrects her hypoxia. She feels better. Her chest x-ray was reviewed by me. I do not see any definite consolidation. She denies any nausea, vomiting or diarrhea. No dysuria. No focal weakness. No headaches. PAST MEDICAL HISTORY: Significant for asthma. PAST SURGICAL HISTORY: Bladder sling. FAMILY HISTORY: Noncontributory to lungs. ALLERGIES: CODEINE. CURRENT MEDICATIONS: Reviewed as listed in the MRAD including antibiotics, Rocephin, doxycycline, and Tamiflu along with DuoNebs. REVIEW OF SYSTEMS: Twelve-point system obtained. Pertinent positives discussed in my history of present illness, otherwise noncontributory. All systems that were negative were reviewed as well. SOCIAL HISTORY: She is a nonsmoker and nonalcoholic. PHYSICAL EXAMINATION: VITAL SIGNS: T-max of 102.6, blood pressure stable, and pulse ox 100% initially on nonrebreather mask, now 93% on 3 liters. HEENT: Sclerae nonicteric. NECK: Supple. LUNGS: Diminished breath sounds. CARDIOVASCULAR: Regular rate. ABDOMEN: Soft. EXTREMITIES: With no pitting edema. LABORATORY DATA: Reviewed. Her influenza screen is negative. BUN and creatinine normal. White cell count 21.3 and hemoglobin 13.0. IMPRESSION: 1. Acute hypoxic respiratory failure secondary to combination of acute asthma exacerbation and acute bronchitis. 2. High-grade fever with no definite consolidation seen on the chest x-ray, likely viral bronchitis. Clinically, responding. 3. No significant tobacco history. 4. Leukocytosis. RECOMMENDATIONS: 1. Continue with present broad-spectrum antibiotics. 2. Gradually wean oxygen and keep saturation 92 and above. 3. Agree with empiric Tamiflu as clinical symptoms suggestive of viral infection. 4. Continue bronchodilators. 5. DVT prophylaxis with Lovenox. 6. We will follow along with you. TAMRA MUNSON MD DR: MADHU/tiffanie JOB#: [id number] / [id number]
[2019-08-28 11:20] VITALS: BP 118/67
--- NOTE | 2019-08-28 12:00 | PDOC ---
[employer] PROGRESS NOTE Chief Complaint Chief Complaint Acute hypoxic respiratory failure Sepsis Asthma exacerbation History of Present Illness History of Present Illness 08/28/2019 Pt seen adn examined Pt currently on Abx Discussed pt's care with RN Chart reviewed Pt on tamiflu currently, although flu was neg. Vitals/I&O Vitals/I&O: Vital Signs Date Time Temp Pulse Resp B/P (MAP) Pulse Ox O2 Delivery O2 Flow Rate FiO2 08/28/19 11:28 92 Nasal Cannula 1.5 08/28/19 11:20 98.6 94 18 118/67 (84) 98.6 I & O 08/27/19 08/27/19 08/28/19 15:00 23:00 07:00 Intake Total 250 ml 200 ml Balance 250 ml 200 ml Physical Exam General: Alert, Oriented X3, Cooperative, moderate distress Abdomen: Normal bowel sounds, Soft, No tenderness, No hepatosplenomegaly, No masses Extremities: No clubbing, No cyanosis, No edema, Normal pulses, No tenderness/swelling Skin: No rashes, No breakdown, No significant lesion Labs Labs: Laboratory Tests Test 08/27/19 12:18 White Blood Count 21.3 x10^3/uL (4.0-11.0) Red Blood Count 4.54 x10^6/uL (3.50-5.40) Hemoglobin 13.0 g/dL (12.0-15.5) Hematocrit 38.9 % (36.0-47.0) Mean Corpuscular Volume 86 fL (79-100) Mean Corpuscular Hemoglobin 29 pg (25-35) Mean Corpuscular Hemoglobin Concent 33 g/dL (31-37) Red Cell Distribution Width 14.2 % (11.5-14.5) Platelet Count 269 x10^3/uL (140-400) Neutrophils (%) (Auto) 92 % (31-73) Lymphocytes (%) (Auto) 3 % (24-48) Monocytes (%) (Auto) 5 % (0-9) Eosinophils (%) (Auto) 0 % (0-3) Basophils (%) (Auto) 0 % (0-3) Neutrophils # (Auto) 19.5 x10^3/uL (1.8-7.7) Lymphocytes # (Auto) 0.6 x10^3/uL (1.0-4.8) Monocytes # (Auto) 1.1 x10^3/uL (0.0-1.1) Eosinophils # (Auto) 0.0 x10^3/uL (0.0-0.7) Basophils # (Auto) 0.0 x10^3/uL (0.0-0.2) Segmented Neutrophils % 85 % (35-66) Band Neutrophils % 7 % (0-9) Lymphocytes % 6 % (24-48) Monocytes % 2 % (0-10) Toxic Granulation Slight Platelet Estimate Adequate (ADEQUATE) Urine Collection Type Unknown Urine Color Kelsey Urine Clarity Clear Urine pH 6.0 Urine Specific [place] 1.025 Urine Protein 30 mg/dL (NEG-TRACE) Urine Glucose (UA) Negative mg/dL (NEG) Urine Ketones (Stick) >=80 mg/dL (NEG) Urine Blood Negative (NEG) Urine Nitrite Negative (NEG) Urine Bilirubin Moderate (NEG) Urine Urobilinogen Dipstick 1.0 mg/dL (0.2 mg/dL) Urine Leukocyte Esterase Small (NEG) Urine RBC Rare /HPF (0-2) Urine WBC Occ /HPF (0-4) Urine Squamous Epithelial Cells Few /LPF Urine Bacteria Few /HPF (0-FEW) Urine Mucus Slight /LPF Sodium Level 136 mmol/L (136-145) Potassium Level 3.9 mmol/L (3.5-5.1) Chloride Level 98 mmol/L (98-107) Carbon Dioxide Level 26 mmol/L (21-32) Anion Gap 12 (6-14) Blood Urea Nitrogen 15 mg/dL (7-20) Creatinine 0.7 mg/dL (0.6-1.0) Estimated GFR (Cockcroft-Gault) 82.5 BUN/Creatinine Ratio 21 (6-20) Glucose Level 105 mg/dL (70-99) Lactic Acid Level 0.9 mmol/L (0.4-2.0) Calcium Level 8.9 mg/dL (8.5-10.1) Total Bilirubin 0.7 mg/dL (0.2-1.0) Aspartate Amino Transf (AST/SGOT) 16 U/L (15-37) Alanine Aminotransferase (ALT/SGPT) 18 U/L (14-59) Alkaline Phosphatase 115 U/L (46-116) Troponin I Quantitative < 0.017 ng/mL (0.000-0.055) Total Protein 7.7 g/dL (6.4-8.2) Albumin 3.6 g/dL (3.4-5.0) Albumin/Globulin Ratio 0.9 (1.0-1.7) Influenza Type A Antigen Negative (NEGATIVE) Influenza Type B Antigen Negative (NEGATIVE) Review of Systems Review of Systems: GI: pt denies NV and abd pain Neuro: pt denies change in vision and JOY Assessment and Plan Assessmemt and Plan Acute hypoxic respiratory failure Sepsis Asthma exacerbation Plan Continue Abx appreciate input of subspecialists PT/OT DVT prophylaxis continue Home meds Cardiac monitoring Daily CMP Comment Review of Relevant I have reviewed the following items rufino (where applicable) has been applied. Medications: Current Medications Medications (Trade) Dose Ordered Sig/Tiburcio Route PRN Reason Start Time Stop Time Status Last Admin Dose Admin Acetaminophen (Tylenol) 1,000 mg 1X ONCE PO 08/27/19 12:45 08/27/19 12:46 DC 08/27/19 12:48 Sodium Chloride 1,000 ml @ 1,000 mls/hr 1X ONCE IV 08/27/19 12:45 08/27/19 13:44 DC 08/27/19 12:43 Sodium Chloride 500 ml @ 500 mls/hr 1X ONCE IV 08/27/19 12:45 08/27/19 13:44 DC 08/27/19 12:48 Ceftriaxone Sodium (Rocephin) 1 gm 1X ONCE IVP 08/27/19 12:45 08/27/19 12:46 DC 08/27/19 12:48 Sodium Chloride 500 ml @ 500 mls/hr 1X ONCE IV 08/27/19 13:30 08/27/19 14:29 DC 08/27/19 13:30 Doxycycline Hyclate 100 mg/ Dextrose 100 ml @ 50 mls/hr 1X ONCE IV 08/27/19 16:00 08/27/19 17:59 DC 08/27/19 17:45 Oseltamivir Phosphate (Tamiflu) 30 mg BID PO 08/27/19 21:00 09/01/19 09:01 08/28/19 08:55 Albuterol/ Ipratropium (Duoneb) 3 ml 1X ONCE NEB 08/27/19 16:00 08/27/19 16:01 DC 08/27/19 16:19 Albuterol/ Ipratropium (Duoneb) 3 ml RTQID NEB 08/27/19 20:00 08/28/19 11:27 Ceftriaxone Sodium (Rocephin) 1 gm Q24H IVP 08/28/19 09:30 08/28/19 09:02 Doxycycline Hyclate (Vibra-Tab) 100 mg BID PO 08/28/19 09:00 08/28/19 08:55 Budesonide (Pulmicort) 0.5 mg RTBID NEB 08/27/19 20:00 08/28/19 07:55 Montelukast Sodium (Singulair) 10 mg QHS PO 08/27/19 21:00 08/27/19 22:10 Enoxaparin Sodium (Lovenox 40mg Syringe) 40 mg Q24H SQ 08/27/19 17:00 08/27/19 17:45 ARNOLDO CORTES III DO Aug 28, 2019 12:00
[2019-08-28] MEDS: LACTOBACILLUS RHAMNOSUS GG 1 CAPSULE. PO SCH ×2 (12:06→21:46)
[2019-08-28 15:00] VITALS: BP 116/68
[2019-08-28] MEDS: ENOXAPARIN 40 MG/0.4 ML SYRINGE. SQ SCH (16:39)
[2019-08-28 19:00] VITALS: BP 122/72
[2019-08-28] MEDS: MONTELUKAST SODIUM 10 MG TABLET. PO SCH (21:46)
[2019-08-28 23:00] VITALS: BP 174/105
[2019-08-29 03:00] VITALS: BP 125/77
[2019-08-29 07:00] VITALS: BP 159/87
[2019-08-29] MEDS: BUDESONIDE 0.5 MG/2 ML NEBU. NEB SCH (08:00)
[2019-08-29] MEDS: IPRATRPIUM/ALBUTEROL 0.5/2.5MG 3 ML NEBU. NEB SCH ×3 (08:00→16:06)
--- NOTE | 2019-08-29 09:22 | PDOC ---
PULMONARY PROGRESS NOTES Subjective PT FEELS BETTER LESS SOA COUGH PERSIST Vitals Vital Signs Date Time Temp Pulse Resp B/P (MAP) Pulse Ox O2 Delivery O2 Flow Rate FiO2 08/29/19 08:01 93 Nasal Cannula 1.5 08/29/19 07:00 98.0 98 20 159/87 (111) 98.0 ROS: No Nausea, No Chest Pain, No Abdominal Pain, No Increase Cough General: Alert Lungs: Crackles Cardiovascular: S1, S2 Abdomen: Soft, Non-tender Neuro Exam: Alert Extremities: No Edema Skin: Warm Labs Laboratory Tests Test 08/27/19 12:18 White Blood Count 21.3 x10^3/uL (4.0-11.0) Red Blood Count 4.54 x10^6/uL (3.50-5.40) Hemoglobin 13.0 g/dL (12.0-15.5) Hematocrit 38.9 % (36.0-47.0) Mean Corpuscular Volume 86 fL (79-100) Mean Corpuscular Hemoglobin 29 pg (25-35) Mean Corpuscular Hemoglobin Concent 33 g/dL (31-37) Red Cell Distribution Width 14.2 % (11.5-14.5) Platelet Count 269 x10^3/uL (140-400) Neutrophils (%) (Auto) 92 % (31-73) Lymphocytes (%) (Auto) 3 % (24-48) Monocytes (%) (Auto) 5 % (0-9) Eosinophils (%) (Auto) 0 % (0-3) Basophils (%) (Auto) 0 % (0-3) Neutrophils # (Auto) 19.5 x10^3/uL (1.8-7.7) Lymphocytes # (Auto) 0.6 x10^3/uL (1.0-4.8) Monocytes # (Auto) 1.1 x10^3/uL (0.0-1.1) Eosinophils # (Auto) 0.0 x10^3/uL (0.0-0.7) Basophils # (Auto) 0.0 x10^3/uL (0.0-0.2) Segmented Neutrophils % 85 % (35-66) Band Neutrophils % 7 % (0-9) Lymphocytes % 6 % (24-48) Monocytes % 2 % (0-10) Toxic Granulation Slight Platelet Estimate Adequate (ADEQUATE) Urine Collection Type Unknown Urine Color Kelsey Urine Clarity Clear Urine pH 6.0 Urine Specific [place] 1.025 Urine Protein 30 mg/dL (NEG-TRACE) Urine Glucose (UA) Negative mg/dL (NEG) Urine Ketones (Stick) >=80 mg/dL (NEG) Urine Blood Negative (NEG) Urine Nitrite Negative (NEG) Urine Bilirubin Moderate (NEG) Urine Urobilinogen Dipstick 1.0 mg/dL (0.2 mg/dL) Urine Leukocyte Esterase Small (NEG) Urine RBC Rare /HPF (0-2) Urine WBC Occ /HPF (0-4) Urine Squamous Epithelial Cells Few /LPF Urine Bacteria Few /HPF (0-FEW) Urine Mucus Slight /LPF Sodium Level 136 mmol/L (136-145) Potassium Level 3.9 mmol/L (3.5-5.1) Chloride Level 98 mmol/L (98-107) Carbon Dioxide Level 26 mmol/L (21-32) Anion Gap 12 (6-14) Blood Urea Nitrogen 15 mg/dL (7-20) Creatinine 0.7 mg/dL (0.6-1.0) Estimated GFR (Cockcroft-Gault) 82.5 BUN/Creatinine Ratio 21 (6-20) Glucose Level 105 mg/dL (70-99) Lactic Acid Level 0.9 mmol/L (0.4-2.0) Calcium Level 8.9 mg/dL (8.5-10.1) Total Bilirubin 0.7 mg/dL (0.2-1.0) Aspartate Amino Transf (AST/SGOT) 16 U/L (15-37) Alanine Aminotransferase (ALT/SGPT) 18 U/L (14-59) Alkaline Phosphatase 115 U/L (46-116) Troponin I Quantitative < 0.017 ng/mL (0.000-0.055) Total Protein 7.7 g/dL (6.4-8.2) Albumin 3.6 g/dL (3.4-5.0) Albumin/Globulin Ratio 0.9 (1.0-1.7) Influenza Type A Antigen Negative (NEGATIVE) Influenza Type B Antigen Negative (NEGATIVE) Medications Active Scripts Medications Dose Route/Sig Max Daily Dose Days Date Category Dose Instructions Duoneb 0.5-3(2.5) Mg/3 Ml (Albuterol/Ipratropium) 3 Ml Ampul.neb 3 Ml NEB QID 10/03/17 Rx Prednisone (Prednisone) 10 Mg Tablet 10 Mg PO UD 10/03/17 Rx Take 3 tablets by mouth twice a day for 3 days, then take 2 tablets by mouth twice a day for 3 days, then take 1 tablet by mouth twice a day for 3 days, then take 1 tablet by mouth daily x 3 days, then stop. Zithromax (Azithromycin) 250 Mg Tablet 1 Pkg PO UD 10/03/17 Rx Take (2) tablets today and then (1) a day until gone Clindamycin Hcl 300 Mg Capsule 1 Cap PO TID 07/14/17 Rx Doxycycline Hyclate 100 Mg Capsule 1 Cap PO BID 02/27/17 Rx Prednisone 50 Mg Tablet 1 Tab PO DAILY 09/04/16 Rx start taking 09/05/16 Impression . IMPRESSION: 1. Acute hypoxic respiratory failure secondary to combination of acute asthma exacerbation and acute bronchitis. 2. High-grade fever with no definite consolidation seen on the chest x-ray, likely viral bronchitis. Clinically, responding. 3. No significant tobacco history. 4. Leukocytosis. Plan . PT FEELS BETTER OK TO DC ON TAPER PRED DOXY FOLLOW UP WITH PCP JERONIMO JAQUEZ MD Aug 29, 2019 09:22
[2019-08-29] MEDS: cefTRIAXone IV Push 1 GM VIAL. IVP SCH (09:38)
[2019-08-29] MEDS: LACTOBACILLUS RHAMNOSUS GG 1 CAPSULE. PO SCH (09:39)
[2019-08-29] MEDS: DOXYCYCLINE HYCLATE 100 MG TABLET PO SCH (09:39)
[2019-08-29] MEDS: OSELTAMIVIR 30 MG CAPSULE PO SCH (09:39)
--- NOTE | 2019-08-29 10:30 | PDOC ---
[employer] [facility] PROGRESS NOTE Chief Complaint Chief Complaint Acute hypoxic respiratory failure Sepsis Asthma exacerbation History of Present Illness History of Present Illness 08/28/2019 Pt seen adn examined Pt currently on Abx Discussed pt's care with RN Chart reviewed Pt on tamiflu currently, although flu was neg. 08/29/2019 Pt seen and examined On O2 via nasal canula Spoke to granddaughter on the phone regarding pt care and treatment plan Pt currently on tamiflu per request of baker pie On Abx PO Chart reviewed Discussed pt care with RN Vitals/I&O Vitals/I&O: Vital Signs Date Time Temp Pulse Resp B/P (MAP) Pulse Ox O2 Delivery O2 Flow Rate FiO2 08/29/19 08:01 93 Nasal Cannula 1.5 08/29/19 07:00 98.0 98 20 159/87 (111) 98.0 I & O 08/28/19 08/28/19 08/29/19 15:00 23:00 07:00 Intake Total 420 ml 480 ml 200 ml Balance 420 ml 480 ml 200 ml Physical Exam General: Alert, Oriented X3, Cooperative, moderate distress Abdomen: Normal bowel sounds, Soft, No tenderness, No hepatosplenomegaly, No masses Extremities: No clubbing, No cyanosis, No edema, Normal pulses, No tenderness/swelling Skin: No rashes, No breakdown, No significant lesion Review of Systems Review of Systems: GI: pt denies NV and abd pain Neuro: pt denies changes in vision or JOY Assessment and Plan Assessmemt and Plan Acute hypoxic respiratory failure, sepsis, asthma exacerbation Plan: D/c in PM if approved by baker pie Continue Tamiflu per request of baker pie Continue Abx Cardiac monitoring Appreciate input from subspecialists Breathing tx Titrate O2 as tolerated Comment Review of Relevant I have reviewed the following items rufino (where applicable) has been applied. Medications: Current Medications Medications (Trade) Dose Ordered Sig/Tiburcio Route PRN Reason Start Time Stop Time Status Last Admin Dose Admin Lactobacillus Rhamnosus (Culturelle) 1 cap BID PO 08/28/19 12:00 08/29/19 09:39 ARNOLDO CORTES III DO Aug 29, 2019 10:30
[2019-08-29 11:00] VITALS: BP 126/75
[2019-08-29 15:00] VITALS: BP 124/76
--- NOTE | 2019-08-29 18:14 | NUR ---
Discharge Note: ROMI PRIEST [address] Patient completed her six minute walk with RT. Discharge instructions and discharge home medications reviewed with Patient and a copy given. All questions have been answered and understanding verbalized. The following instructions and handouts were given: follow up instructions. Discontinued lines and drains: 20g catheter tip intact. Patient tolerated well. Patient discharged to home with self care by private vehicle.
== END 2019-08-29 18:30 | disposition home or self-care (01) | DRG 871 ==
LOC: ER 11:59 → 6 SOUTH 13:47
PROVIDERS: ADMIT Internal Medicine; ATTEND Internal Medicine
DX: A41.9 Sepsis, unspecified organism (principal); J96.01 Acute respiratory failure with hypoxia; J45.901 Unspecified asthma with (acute) exacerbation; J20.9 Acute bronchitis, unspecified; Z88.5 Allergy status to narcotic agent; Z88.8 Allergy status to other drugs, medicaments and biological substances
CPT/HCPCS: 36415; 71045; 80053; 81001; 83605; 84484; 85007; 85025; 87040; 87086; 87804; 93005; 94618; 94640; 94760; J0696; J1650; J3490; J7030; J7040; J7620; J7626; G0378